=== PATIENT | male | born 1995 | race Caucasian/White ===

== ENCOUNTER 2017-10-26 13:31 | Emergency (ER) | payer SELFPAY ==
[2017-10-26] MEDS ORDERED: NACL 0.9% 1000 ML 1,000 ML IV ONE ×2 (13:35→13:37)
[2017-10-26 14:00] LABS: Basophils % (Auto) 0.1 % (0.0-1.8); Hematocrit 43.1 % (35.5-45.6); Hemoglobin 14.4 gm/dl (11.8-15.2); Lymphocytes # (Auto) 0.9 K/mm3 (1.2-5.4); Lymphocytes % (Auto) 7.7 % (13.4-35.0); Mean Corpuscular HGB Conc 34 % (32-34); Mean Corpuscular Hemoglobin 30 pg (28-32); Mean Corpuscular Volume 90 fl (84-94); Monocytes # (Auto) 0.6 K/mm3 (0.0-0.8); Monocytes % (Auto) 5.5 % (0.0-7.3); Platelet Count 257 K/mm3 (140-440); Red Blood Count 4.81 M/mm3 (3.65-5.03); Red Cell Distribution Width 14.1 % (13.2-15.2)
[2017-10-26] MEDS ORDERED: XYLOCAINE 1% 20 mL INFILTRATI ONE (14:04)
[2017-10-26 14:11] LABS: INR 0.95 (0.87-1.13); Partial Thromboplastin Time 24.9 Sec. (24.2-36.6)
[2017-10-26 14:21] LABS: BUN/Creatinine Ratio 8; Blood Urea Nitrogen 8 mg/dL (9-20); Hemolysis Index 31
[2017-10-26 14:22] LABS: Alanine Aminotransferase 45 units/L (7-56); Albumin 4.8 g/dL (3.9-5)
[2017-10-26 14:30] LABS: Bilirubin,Direct < 0.2 mg/dL (0-0.2)
--- NOTE | 2017-10-26 14:39 | XRay Report ---
FINAL REPORT EXAM: XR CHEST 1V AP HISTORY: Syncope TECHNIQUE: Single, portable chest x-ray. PRIORS: None. FINDINGS: Cardiac and mediastinal silhouette within normal limits. Lungs are normally expanded, without significant vascular congestion. Calcified granuloma projects over right inferolateral lung. No focal consolidation or apparent pneumothorax. Very mild dextroconvex curvature of thoracic spine. IMPRESSION: 1. No acute findings.
[2017-10-26 14:52] LABS: Bacteria,Urine 1+ /HPF (Negative); Bilirubin,Urine NEG (Negative); Blood,Urine MOD (Negative); Color,Urine Yellow (Yellow); Mucus,Urine 2+ /HPF; Urobilinogen,Urine < 2.0 mg/dL (<2.0)
--- NOTE | 2017-10-26 14:56 | Cat Scan Report ---
FINAL REPORT EXAM: CT HEAD/BRAIN WO CON HISTORY: Syncope TECHNIQUE: Noncontrast CT axial images of the brain. PRIORS: None. FINDINGS: No parenchymal mass, mass effect, hemorrhage, midline shift or hydrocephalus. No evidence of acute cortical infarct. No abnormal, extra-axial fluid or air collection. Osseous calvarium grossly intact. Mucosal thickening in the left maxillary sinus. IMPRESSION: 1. No acute intracranial findings. 2. Left maxillary sinus disease.
[2017-10-26 15:08] LABS: Benzodiazepines Screen,Urine PRESUMPTIVE NEGATIVE; Cannabinoid Screen,Urine PRESUMPTIVE NEGATIVE; Methadone Screen,Urine PRESUMPTIVE NEGATIVE; Opiate Screen,Urine PRESUMPTIVE NEGATIVE
[2017-10-26 15:24] LABS: Amphetamine Screen,Urine PRESUMPTIVE POSITIVE; Cocaine Screen,Urine PRESUMPTIVE POSITIVE
[2017-10-26 15:35] VITALS: BP 149/84
--- NOTE | 2017-10-26 18:47 | Emergency Department Report ---
ED General Adult HPI - General Chief complaint: Dizziness Stated complaint: AMS Time Seen by Provider: 10/26/17 14:04 Source: patient Mode of arrival: Stretcher Limitations: No Limitations - History of Present Illness Initial comments: 22-year-old male who stated that he drank 30 beers recently. He states he used "more cocaine than usual". Paramedics were summoned to his home when he apparently had a tonic clonic seizure per bystanders. Upon arrival of paramedics they found the patient to be lethargic and possibly postictal. However he came around quite rapidly. Apparently he fell and injured his left eyebrow area. Upon his arrival he is awake and alert and coherent. He states he has soreness in the eyebrow area but denies neck or back pain or headache. He denies any prior hospitalizations. He denies any routine medications. -: Sudden Location: face Radiation: non-radiation Quality: other (some localized soreness) Consistency: other Improves with: none Worsens with: none Associated Symptoms: denies other symptoms Treatments Prior to Arrival: none - Related Data Allergies Allergy/AdvReac Type Severity Reaction Status Date / Time No Known Allergies Allergy Unverified 10/26/17 13:59 ED Review of Systems ROS: Stated complaint: AMS Other details as noted in HPI Constitutional: denies: chills, fever Eyes: as per HPI (soreness left eyebrow). denies: eye pain, eye discharge, vision change ENT: denies: ear pain, throat pain Respiratory: denies: cough, shortness of breath, wheezing Cardiovascular: denies: chest pain, palpitations Endocrine: no symptoms reported Gastrointestinal: denies: abdominal pain, nausea, diarrhea Genitourinary: denies: urgency, dysuria Musculoskeletal: denies: back pain, joint swelling, arthralgia Skin: denies: rash, lesions Neurological: as per HPI (apparent seizure). denies: headache, weakness, paresthesias Psychiatric: denies: anxiety, depression Hematological/Lymphatic: denies: easy bleeding, easy bruising ED Past Medical Hx - Past Medical History Previous Medical History?: No - Social History Smoking Status: Current Every Day Smoker Substance Use Type: Cocaine ED Physical Exam - General Limitations: No Limitations General appearance: alert, in no apparent distress - Head Head exam: Present: normocephalic, other (no evidence of head injury. There is soft tissue swelling and a 2 cm laceration of the eyebrow area there is no deformity.) - Eye Eye exam: Present: PERRL, EOMI, periorbital swelling (slight as above). Absent : scleral icterus - ENT ENT exam: Present: mucous membranes moist - Neck Neck exam: Present: normal inspection. Absent: tenderness, meningismus - Respiratory Respiratory exam: Present: normal lung sounds bilaterally. Absent: respiratory distress - Cardiovascular Cardiovascular Exam: Present: regular rate, normal rhythm. Absent: systolic murmur, diastolic murmur, rubs, gallop - GI/Abdominal GI/Abdominal exam: Present: soft, normal bowel sounds. Absent: distended, tenderness, guarding, rebound, rigid - Rectal Rectal exam: Present: deferred - Extremities Exam Extremities exam: Present: normal inspection - Back Exam Back exam: Present: normal inspection - Neurological Exam Neurological exam: Present: alert, oriented X3, CN II-XII intact. Absent: motor sensory deficit - Psychiatric Psychiatric exam: Present: normal affect, normal mood - Skin Skin exam: Present: warm, dry, intact, normal color. Absent: rash ED Course Vital Signs 10/26/17 10/26/17 10/26/17 13:44 13:52 14:00 Temperature 98.1 F Pulse Rate 130 H 114 H 113 H Respiratory 18 14 17 Rate Blood Pressure 152/76 149/84 O2 Sat by Pulse 99 100 Oximetry 10/26/17 10/26/17 10/26/17 14:16 14:30 14:46 Temperature Pulse Rate 101 H 107 H 94 H Respiratory 16 17 18 Rate Blood Pressure 149/84 149/84 149/84 O2 Sat by Pulse Oximetry 10/26/17 10/26/17 10/26/17 15:00 15:16 15:30 Temperature Pulse Rate 109 H 96 H 97 H Respiratory 23 21 15 Rate Blood Pressure 149/84 149/84 149/84 O2 Sat by Pulse Oximetry 10/26/17 15:46 Temperature Pulse Rate 89 Respiratory 13 Rate Blood Pressure 149/84 O2 Sat by Pulse Oximetry - Reevaluation(s) Reevaluation #1: The patient was slightly distant interested in medical care from my initial encounter. He did cooperate with CT laboratory workup and did receive IV fluid. He was informed that further care was required particularly relating to the presence of rhabdomyolysis and the possibility of acute renal failure. Despite this he signed out AGAINST MEDICAL ADVICE. He was mentally competent and totally coherent and not intoxicated at the point where he signed out AMA. The left with another young individual. 10/26/17 18:54 ED Medical Decision Making - Lab Data Result diagrams: 10/26/17 13:51 10/26/17 13:51 Laboratory Results - last 24 hr 10/26/17 10/26/17 10/26/17 13:51 13:51 13:51 WBC 11.6 H RBC 4.81 Hgb 14.4 Hct 43.1 MCV 90 MCH 30 MCHC 34 RDW 14.1 Plt Count 257 Lymph % (Auto) 7.7 L [place] % (Auto) 5.5 Eos % (Auto) 0.0 Baso % (Auto) 0.1 Lymph # 0.9 L [place] # 0.6 Eos # 0.0 Baso # 0.0 Seg Neutrophils % 86.7 H Seg Neutrophils # 10.1 H PT 13.2 INR 0.95 APTT 24.9 Sodium 139 Potassium 3.6 Chloride 98.4 Carbon Dioxide 22 Anion Gap 22 BUN 8 L Creatinine 1.0 Estimated GFR > 60 BUN/Creatinine Ratio 8 Glucose 133 H Calcium 9.0 Magnesium 2.30 Total Bilirubin Direct Bilirubin Indirect Bilirubin AST ALT Alkaline Phosphatase Total Creatine Kinase 1938 H CK-MB (CK-2) 6.0 H CK-MB (CK-2) Rel Index 0.3 Troponin T < 0.010 Total Protein Albumin Albumin/Globulin Ratio Urine Color Urine Turbidity Urine pH Ur Specific [place] Urine Protein Urine Glucose (UA) Urine Ketones Urine Blood Urine Nitrite Urine Bilirubin Urine Urobilinogen Ur Leukocyte Esterase Urine WBC (Auto) Urine RBC (Auto) U Epithel Cells (Auto) Urine Bacteria (Auto) Urine Mucus Urine Opiates Screen Urine Methadone Screen Ur Barbiturates Screen Ur Phencyclidine Scrn Ur Amphetamines Screen U Benzodiazepines Scrn Urine Cocaine Screen U Marijuana (THC) Screen Drugs of Abuse Note Plasma/Serum Alcohol 10/26/17 10/26/17 10/26/17 13:51 14:02 14:02 WBC RBC Hgb Hct MCV MCH MCHC RDW Plt Count Lymph % (Auto) [place] % (Auto) Eos % (Auto) Baso % (Auto) Lymph # [place] # Eos # Baso # Seg Neutrophils % Seg Neutrophils # PT INR APTT Sodium Potassium Chloride Carbon Dioxide Anion Gap BUN Creatinine Estimated GFR BUN/Creatinine Ratio Glucose Calcium Magnesium Total Bilirubin 0.60 Direct Bilirubin < 0.2 Indirect Bilirubin 0.4 AST 53 H ALT 45 Alkaline Phosphatase 94 Total Creatine Kinase CK-MB (CK-2) CK-MB (CK-2) Rel Index Troponin T Total Protein 7.3 Albumin 4.8 Albumin/Globulin Ratio 1.9 Urine Color Yellow Urine Turbidity Clear Urine pH 5.0 Ur Specific [place] 1.015 Urine Protein 100 mg/dl Urine Glucose (UA) Neg Urine Ketones Neg Urine Blood Mod Urine Nitrite Neg Urine Bilirubin Neg Urine Urobilinogen < 2.0 Ur Leukocyte Esterase Neg Urine WBC (Auto) 4.0 Urine RBC (Auto) 1.0 U Epithel Cells (Auto) < 1.0 Urine Bacteria (Auto) 1+ Urine Mucus 2+ Urine Opiates Screen Presumptive negative Urine Methadone Screen Presumptive negative Ur Barbiturates Screen Presumptive negative Ur Phencyclidine Scrn Presumptive negative Ur Amphetamines Screen Presumptive positive U Benzodiazepines Scrn Presumptive negative Urine Cocaine Screen Presumptive positive U Marijuana (THC) Screen Presumptive negative Drugs of Abuse Note Disclamer Plasma/Serum Alcohol 10/26/17 14:32 WBC RBC Hgb Hct MCV MCH MCHC RDW Plt Count Lymph % (Auto) [place] % (Auto) Eos % (Auto) Baso % (Auto) Lymph # [place] # Eos # Baso # Seg Neutrophils % Seg Neutrophils # PT INR APTT Sodium Potassium Chloride Carbon Dioxide Anion Gap BUN Creatinine Estimated GFR BUN/Creatinine Ratio Glucose Calcium Magnesium Total Bilirubin Direct Bilirubin Indirect Bilirubin AST ALT Alkaline Phosphatase Total Creatine Kinase CK-MB (CK-2) CK-MB (CK-2) Rel Index Troponin T Total Protein Albumin Albumin/Globulin Ratio Urine Color Urine Turbidity Urine pH Ur Specific [place] Urine Protein Urine Glucose (UA) Urine Ketones Urine Blood Urine Nitrite Urine Bilirubin Urine Urobilinogen Ur Leukocyte Esterase Urine WBC (Auto) Urine RBC (Auto) U Epithel Cells (Auto) Urine Bacteria (Auto) Urine Mucus Urine Opiates Screen Urine Methadone Screen Ur Barbiturates Screen Ur Phencyclidine Scrn Ur Amphetamines Screen U Benzodiazepines Scrn Urine Cocaine Screen U Marijuana (THC) Screen Drugs of Abuse Note Plasma/Serum Alcohol < 0.01 - EKG Data EKG shows normal: sinus rhythm, axis, intervals, QRS complexes, ST-T waves Rate: normal - EKG Data Interpretation: nonspecific ST-T wave ronna - Radiology Data interpreted by me: Chest x-ray showed no acute process. CT of the head showed no acute process. Critical care attestation.: If time is entered above; I have spent that time in minutes in the direct care of this critically ill patient, excluding procedure time. ED Disposition Clinical Impression: Grand mal seizure, Cocaine abuse Eyebrow laceration Qualifiers: Encounter type: initial encounter Laterality: left Qualified Code(s): S01.112A - Laceration without foreign body of left eyelid and periocular area, initial encounter Rhabdomyolysis Qualifiers: Rhabdomyolysis type: non-traumatic Qualified Code(s): M62.82 - Rhabdomyolysis Disposition: [id number] LEFT AGAINST MED ADVICE Is pt being admited?: No Does the pt Need Aspirin: No Condition: Stable Referrals: CHRIS ANAYA MD [Primary Care Provider] - 3-5 Days Forms: AMA Form Time of Disposition: 18:30
== END 2017-10-26 18:50 | disposition left against medical advice (07) ==
LOC: ED 13:31
DX: S01.112A Laceration without foreign body of left eyelid and periocular area, initial encounter (principal); M62.82 Rhabdomyolysis; G40.409 Other generalized epilepsy and epileptic syndromes, not intractable, without status epilepticus; N17.9 Acute kidney failure, unspecified; F17.200 Nicotine dependence, unspecified, uncomplicated; F14.10 Cocaine abuse, uncomplicated; W19.XXXA Unspecified fall, initial encounter; Y93.89 Activity, other specified; Y92.89 Other specified places as the place of occurrence of the external cause; Y99.8 Other external cause status
CPT/HCPCS: 36415; 70450; 71045; 80048; 80074; 80307; 81001; 82550; 82553; 83735; 84484; 85025; 85610; 85730; 93005; 93010; 96360; 96361; 99285; G0480; J7030; 80320